=== PATIENT | female | born 1945 | race Caucasian/White ===

== ENCOUNTER → 2019-11-12 08:05 | Outpatient (CLI) | payer MEDICARE, OTHER, SELFPAY ==
[2019-11-12 09:40] LABS: Alanine Aminotransferase 18 IU/L (<35); Albumin 4.5 g/dL (3.5-5.0); Albumin Globulin Ratio 1.4 (1.0-2.8); Alkaline Phosphatase 74 U/L (38-126); Aspartate Aminotransferase 22 IU/L (14-36); BUN Creatinine Ratio 26.8 (6-22); Bilirubin Total 0.5 mg/dL (0.2-1.3); Blood Urea Nitrogen 19 mg/dL (7-17); Calcium 9.7 mg/dL (8.4-10.2); Carbon Dioxide 27 mmol/L (22-32); Chloride 103 mmol/L (98-107); Cholesterol 153 mg/dL (140-199); Estimated Glomerular Filt Rate > 60.0 mL/min (>60); Globulin 3.2 g/dL (1.7-4.1); Glucose 97 mg/dL (80-110); HDL Cholesterol 50 mg/dL (40-60); HEMOLYSIS < 15 (0-50); LDL Cholesterol Calculated 78 mg/dL (<100); Potassium 3.9 mmol/L (3.4-5.1); Sodium 138 mmol/L (137-145); Total Protein 7.7 g/dL (6.3-8.2); Triglycerides 127 mg/dL (35-150)
[2019-11-12 09:44] LABS: High Sensitivity CRP - Cardiac 0.3 mg/L (1.0-3.0)
[2019-11-12 10:30] LABS: Vitamin D 25 Hydroxy (D3) 50.5 ng/mL (30.0-100.0)
[2019-11-14 11:10] LABS: Cholesterol, Total 151 mg/dL (100-199); HDL-Cholesterol 58 mg/dL (>39); HDL-Particle (Total) 35.8 umol/L (>=30.5); LDL Particle 786 nmol/L (<1000); LDL Size 20.7 nm (>20.5); LDL-Cholsterol 69 mg/dL (0-99); LP-IR Score 52 (<=45); Small LDL- Particle 203 nmol/L (<=527); Triglycerides 122 mg/dL (0-149)
== END ==
PROVIDERS: PCP Student in an Organized Health Care Education/Training Program; Visit Provider Student in an Organized Health Care Education/Training Program
DX: E78.5 Hyperlipidemia, unspecified (principal); I10 Essential (primary) hypertension; I25.10 Atherosclerotic heart disease of native coronary artery without angina pectoris; I35.8 Other nonrheumatic aortic valve disorders; E55.9 Vitamin D deficiency, unspecified
CPT/HCPCS: 80053; 80061; 82306; 83704; 86140

== ENCOUNTER → 2020-08-04 11:23 | Outpatient (CLI) | payer MEDICARE, OTHER, SELFPAY ==
[2020-08-04 13:50] LABS: TSH w/ Reflex to FT4 1.52 uIU/mL (0.47-4.68)
== END ==
PROVIDERS: PCP Student in an Organized Health Care Education/Training Program; Referring Provider Student in an Organized Health Care Education/Training Program; Visit Provider Student in an Organized Health Care Education/Training Program
DX: E03.9 Hypothyroidism, unspecified (principal)
CPT/HCPCS: 36415; 84443

== ENCOUNTER → 2021-02-24 09:07 | Outpatient (CLI) | payer MEDICARE, OTHER, SELFPAY ==
--- NOTE | 2021-02-24 09:10 | DI.RAD.S_ITS ---
PROCEDURE: XR KNEE RT 3V INDICATIONS: Inferior patella pain and bruising post direct impact TECHNIQUE: 3 views of the knee were acquired. COMPARISON: [facility], CR, XR ANKLE LT MIN 3V, 02/24/2021, 9:06. FINDINGS: Bones: Linear lucency at the inferior patella. No distraction or dislocations. Prior lateral fixation at the proximal tibia. No hardware fracture. No Fernanda screw lucency or plate lift off. Small osteophytes. No suspicious bony lesions. Soft tissues: Trace joint effusion. No suspicious soft tissue calcifications. IMPRESSION: 1. Linear lucency at the inferior patella is suspicious for nondisplaced fracture. Trace joint effusion. -Consider further evaluation with CT or MRI of the knee. 2. Prior ORIF of the lateral proximal tibia. Dictated by: Steven Rivera M.D. on 02/24/2021 at 9:29 Approved by: Steven Rivera M.D. on 02/24/2021 at 9:33
--- NOTE | 2021-02-24 09:10 | DI.RAD.S_ITS ---
PROCEDURE: XR ANKLE LT MIN 3V INDICATIONS: lateral malleolar pain post twisting of ankle TECHNIQUE: 3 views of the ankle were acquired. COMPARISON: None. FINDINGS: Bones: Curvilinear lucency at the tip of the fibula. No dislocations. Ankle mortise is normally aligned. No suspicious bony lesions. Soft tissues: Swelling at the lateral malleolus. No tibiotalar joint effusion. Achilles tendon appears normal. IMPRESSION: Nondisplaced fracture at the distal fibula. Overlying swelling. Dictated by: Steven Rivera M.D. on 02/24/2021 at 9:33 Approved by: Steven Rivera M.D. on 02/24/2021 at 9:34
== END ==
PROVIDERS: PCP Student in an Organized Health Care Education/Training Program; Referring Provider Nurse Practitioner; Visit Provider Nurse Practitioner
DX: M25.461 Effusion, right knee (principal); S82.832A Other fracture of upper and lower end of left fibula, initial encounter for closed fracture; W19.XXXA Unspecified fall, initial encounter
CPT/HCPCS: 73562; 73610

== ENCOUNTER → 2021-12-08 07:47 | Outpatient (CLI) | payer MEDICARE, OTHER, SELFPAY ==
[2021-12-08 09:32] LABS: Alanine Aminotransferase 20 IU/L (<35); Albumin 4.3 g/dL (3.5-5.0); Albumin Globulin Ratio 1.5 (1.0-2.8); Alkaline Phosphatase 61 U/L (38-126); Aspartate Aminotransferase 25 IU/L (14-36); BUN Creatinine Ratio 24.7 (6-22); Bilirubin Total 0.5 mg/dL (0.2-1.3); Blood Urea Nitrogen 21 mg/dL (7-17); Calcium 9.7 mg/dL (8.4-10.2); Carbon Dioxide 30 mmol/L (22-32); Chloride 104 mmol/L (98-107); Cholesterol 131 mg/dL (140-199); Estimated Glomerular Filt Rate > 60 mL/min (>60); Globulin 2.8 g/dL (1.7-4.1); Glucose 98 mg/dL (80-110); HDL Cholesterol 59 mg/dL (40-60); HEMOLYSIS < 15 (0-50); LDL Cholesterol Calculated 51 mg/dL (<100); Potassium 3.9 mmol/L (3.4-5.1); Sodium 140 mmol/L (137-145); Total Protein 7.1 g/dL (6.3-8.2); Triglycerides 106 mg/dL (35-150)
[2021-12-08 09:37] LABS: High Sensitivity CRP - Cardiac 0.7 mg/L (1.0-3.0)
[2021-12-08 10:18] LABS: Thyroid Stimulating Hormone 6.55 uIU/mL (0.47-4.68)
[2021-12-10 10:28] LABS: Cholesterol, Total 137 mg/dL (100-199); HDL-Cholesterol 63 mg/dL (>39); LDL Particle 625 nmol/L (<1000); LDL-Cholsterol 53 mg/dL (0-99); LP-IR Score 45 (<=45); Small LDL- Particle 245 nmol/L (<=527); Triglycerides 116 mg/dL (0-149)
== END ==
PROVIDERS: PCP Student in an Organized Health Care Education/Training Program; Referring Provider Internal Medicine Cardiovascular Disease; Visit Provider Internal Medicine Cardiovascular Disease
DX: I10 Essential (primary) hypertension (principal); Z00.00 Encounter for general adult medical examination without abnormal findings; E03.9 Hypothyroidism, unspecified; I25.10 Atherosclerotic heart disease of native coronary artery without angina pectoris; I65.29 Occlusion and stenosis of unspecified carotid artery
CPT/HCPCS: 36415; 80053; 80061; 83704; 84443; 86140

== ENCOUNTER → 2022-01-26 09:21 | Outpatient (CLI) | payer MEDICARE, OTHER, SELFPAY ==
--- NOTE | 2022-01-26 | DI.US.S_ITS ---
PROCEDURE: US CAROTID DOPPLER BI INDICATIONS: Thoracic aortic ectasia TECHNIQUE: Color and pulse Doppler interrogation was performed of both carotid systems, with image documentation and velocity measurements. COMPARISON: None. FINDINGS: Stenosis calculations are based on SRU (Society of Radiologists in Ultrasound) criteria. The flow velocities and the arterial waveforms are normal within both carotid arterial systems. Atherosclerotic plaque is seen on both sides. The estimated degree of internal carotid artery stenosis is less than 50%. Antegrade flow is confirmed within both vertebral arteries. IMPRESSION: No hemodynamically significant stenosis is seen. Atherosclerotic plaque is noted bilaterally. Dictated by: León Glynn M.D. on 01/26/2022 at 10:21 Approved by: León Glynn M.D. on 01/26/2022 at 10:22
--- NOTE | 2022-01-26 09:24 | DI.ECHO.S_ITS ---
[facility]---------+ [facility] +---------+ : : [address] : : : : [id number] : : : : Phone: [phone]+ Echocardiogram Report + + :Name: KELLEN WHALEY Study Date: 01/26/2022 Height: 68 in : :[facility] [employer] [facility] ReadingLocation: Weight: 200 lb : : Gender: Female BSA: 2.0 m2 : :: 1945 Age: 76 yrs BP: 138/82 mmHg: :Reason For Study: Aortic valve stenosis : :Ordering Physician: BONITA, : :EM Performed By: Jacek Durand : :Referring: EM MESA : + + Interpretation Summary The ejection fraction is estimated to be 55-60%. There is no aortic valve stenosis. There is mild tricuspid regurgitation. The right ventricular systolic pressure is estimated to be at least 26 mmHg based on an estimated right atrial pressure of 3 mm Hg. Procedure: A two-dimensional transthoracic echocardiogram with color flow and Doppler was performed. The study quality was technically adequate. There is no prior echocardiogram noted for this patient. The patient was in normal sinus rhythm during the exam. Left Ventricle: The left ventricle is normal in size and wall thickness. Left ventricular systolic function is normal. The ejection fraction is estimated to be 55-60%. There are no focal wall motion abnormalities. Diastolic parameters suggest probable normal left ventricular diastolic function and normal filling pressures. Right Ventricle: The right ventricle is normal in size and function. Atria: Both atria are normal in size. The interatrial septum grossly appears intact with no obvious evidence for an atrial septal defect. Mitral Valve: The mitral valve is normal in structure and function. There is trace mitral regurgitation. Aortic Valve: The aortic valve is normal in structure and function. There is no aortic valve stenosis. There is trace aortic regurgitation. Tricuspid Valve: The tricuspid valve is normal in structure and function. There is mild tricuspid regurgitation. The right ventricular systolic pressure is estimated to be at least 26 mmHg based on an estimated right atrial pressure of 3 mm Hg. Pulmonic Valve: The pulmonic valve is normal in structure and function. There is a trace or physiologic amount of pulmonic regurgitation. Great Vessels: The aortic root is normal size. The ascending aorta is mildly enlarged. The IVC is of normal diameter and collapses greater than 50% with a sniff. This suggests a low right atrial pressure of 3 mm Hg. Pericardium/ Pleura There is no pericardial effusion. There is no pleural effusion. MMode/2D Measurements & Calculations LVIDd: 4.4 cm LVOT diam: 2.3 cm LVIDs: 3.1 cm Ao root diam: 3.0 cm FS: 29.7 % asc Aorta Diam: 4.0 cm IVSd: 1.0 cm LVPWd: 1.00 cm LV cordero. diameter/BSA (cm/m^2): 2.2 LV sys. diameter/BSA (cm/m^2): 1.5 LA A2 area: 14.4 cm2 RA long axis: 4.1 cm LA A4 area: 19.7 cm2 RA area: 11.1 cm2 LA length (vol): 5.4 cm RA vol: 25.7 ml LA vol: 44.8 ml RA : 12.6 ml/m2 LA vol index: 21.9 ml/m2 TAPSE: 2.0 cm Doppler Measurements & Calculations Ao V2 max: 150.7 cm/sec LVOT Max Tulio: 114.7 cm/sec Ao V2 mean: 112.5 cm/sec LV V1 max P.3 mmHg Ao max P.1 mmHg LV V1 VTI: 21.9 cm Ao mean P.6 mmHg ANGELA(I,D): 2.9 cm2 Ao V2 VTI: 31.3 cm ANGELA(V,D): 3.2 cm2 sev ratio: 0.70 ANGELA indexed to BSA (cm^2/m^2): 1.4 MV E max tulio: 85.7 cm/sec TR max tulio: 238.0 cm/sec MV A max tulio: 97.7 cm/sec TR max P.7 mmHg MV E/A: 0.88 Med Peak E' Tulio: 9.1 cm/sec E/E' med: 9.4 Lat Peak E' Tulio: 11.1 cm/sec E/E' lat: 7.7 E/e' average: 8.6 MV dec time: 0.31 sec SV(LVOT): 91.1 ml Reading Physician:02:15 PM
== END ==
PROVIDERS: PCP Student in an Organized Health Care Education/Training Program; Referring Provider Internal Medicine Cardiovascular Disease; Visit Provider Internal Medicine Cardiovascular Disease
DX: I65.23 Occlusion and stenosis of bilateral carotid arteries (principal); I08.2 Rheumatic disorders of both aortic and tricuspid valves; I77.89 Other specified disorders of arteries and arterioles; I77.810 Thoracic aortic ectasia; I10 Essential (primary) hypertension; E78.5 Hyperlipidemia, unspecified
CPT/HCPCS: 93306; 93880

== ENCOUNTER → 2022-06-05 11:50 | Outpatient (CLI) | payer MEDICARE, OTHER, SELFPAY ==
--- NOTE | 2022-06-05 11:54 | DI.RAD.S_ITS ---
PROCEDURE: XR ANKLE LT MIN 3V INDICATIONS: left ankle pain TECHNIQUE: 3 views of the ankle were acquired. COMPARISON: [facility], CR, XR ANKLE LT MIN 3V, 02/24/2021, 9:06. FINDINGS: Bones: No fractures or dislocations. Ankle mortise is normally aligned. No suspicious bony lesions. Old healed distal fibular fracture Soft tissues: No tibiotalar joint effusion. Achilles tendon appears normal. IMPRESSION: Old healed distal fibular fracture. No acute fracture or foreign body. Approved by: Ravi Andrade M.D. on 06/05/2022 at 12:43
--- NOTE | 2022-06-05 11:54 | DI.RAD.S_ITS ---
PROCEDURE: XR FOOT LT MIN 3V INDICATIONS: left ankle pain TECHNIQUE: 3 views of the foot were acquired. COMPARISON: None. FINDINGS: Bones: No fractures or dislocations. No suspicious bony lesions. Soft tissues: No tibiotalar joint effusion. Achilles tendon appears normal. IMPRESSION: Unremarkable left foot radiographs Approved by: Ravi Andrade M.D. on 06/05/2022 at 12:47
== END ==
PROVIDERS: PCP Student in an Organized Health Care Education/Training Program; Referring Provider Physician Assistant Medical; Visit Provider Physician Assistant Medical
DX: M79.672 Pain in left foot (principal); M25.572 Pain in left ankle and joints of left foot
CPT/HCPCS: 73610; 73630

== ENCOUNTER → 2022-11-22 07:12 | Outpatient (CLI) | payer MEDICARE, OTHER, SELFPAY ==
[2022-11-22 09:57] LABS: Alanine Aminotransferase 20 IU/L (<35); Albumin 4.2 g/dL (3.5-5.0); Albumin Globulin Ratio 1.6 (1.0-2.8); Alkaline Phosphatase 66 U/L (38-126); Aspartate Aminotransferase 21 IU/L (14-36); BUN Creatinine Ratio 22.2 (6-22); Bilirubin Total 0.4 mg/dL (0.2-1.3); Blood Urea Nitrogen 18 mg/dL (7-17); C-Reactive Protein Quant < 0.5 mg/dL (<1.0); Calcium 9.8 mg/dL (8.4-10.2); Carbon Dioxide 28 mmol/L (22-32); Chloride 102 mmol/L (98-107); Cholesterol 113 mg/dL (140-199); Estimated Glomerular Filt Rate > 60 mL/min (>60); Globulin 2.6 g/dL (1.7-4.1); Glucose 95 mg/dL (80-110); HDL Cholesterol 56 mg/dL (40-60); HEMOLYSIS < 15 (0-50); LDL Cholesterol Calculated 37 mg/dL (<100); Sodium 138 mmol/L (137-145); Total Protein 6.8 g/dL (6.3-8.2); Triglycerides 100 mg/dL (35-150)
[2022-11-23 09:48] LABS: Free T3, Triiodothyronine Free 3.72 pg/mL (2.77-5.27); Free T4, Direct Thyroxine 1.22 ng/dL (0.78-2.19)
[2022-11-23 10:01] LABS: Thyroid Stimulating Hormone 1.95 uIU/mL (0.47-4.68)
[2022-11-24 14:48] LABS: Cholesterol, Total 120 mg/dL (100-199); HDL-Cholesterol 61 mg/dL (>39); HDL-Particle (Total) 38.7 umol/L (>=30.5); LDL Particle 451 nmol/L (<1000); LDL Size 20.4 nm (>20.5); LDL-Cholsterol 41 mg/dL (0-99); LP-IR Score 40 (<=45); Small LDL- Particle 114 nmol/L (<=527); Triglycerides 99 mg/dL (0-149)
== END ==
PROVIDERS: PCP Family Medicine; Referring Provider Internal Medicine Cardiovascular Disease; Visit Provider Internal Medicine Cardiovascular Disease
DX: I10 Essential (primary) hypertension (principal); E78.5 Hyperlipidemia, unspecified; I25.10 Atherosclerotic heart disease of native coronary artery without angina pectoris; I65.29 Occlusion and stenosis of unspecified carotid artery; E03.9 Hypothyroidism, unspecified
CPT/HCPCS: 36415; 80053; 80061; 83704; 84439; 84443; 84481; 86140

== ENCOUNTER → 2023-04-29 11:33 | Outpatient (CLI) | payer MEDICARE, OTHER, SELFPAY ==
[2023-04-29 17:59] LABS: Vitamin D 25 Hydroxy (D3) 72.6 ng/mL (30.0-100.0)
[2023-05-01 08:54] LABS: Calcium 9.8 mg/dL (8.7-10.3); Parathyroid Hormone, Intact 61 pg/mL (15-65)
== END ==
PROVIDERS: PCP Family Medicine; Referring Provider Family Medicine; Visit Provider Family Medicine
DX: E83.52 Hypercalcemia (principal)
CPT/HCPCS: 36415; 82306; 82310; 83970

== ENCOUNTER → 2024-03-10 09:16 | Outpatient (CLI) | payer MEDICARE, OTHER, SELFPAY ==
[2024-03-10 10:46] LABS: Alanine Aminotransferase 20 IU/L (<35); Albumin 4.1 g/dL (3.5-5.0); Albumin Globulin Ratio 1.7 (1.0-2.8); Alkaline Phosphatase 63 U/L (38-126); Aspartate Aminotransferase 22 IU/L (14-36); BUN Creatinine Ratio 23.8 (6-22); Bilirubin Total 0.6 mg/dL (0.2-1.3); Blood Urea Nitrogen 20 mg/dL (7-17); Calcium 10.1 mg/dL (8.4-10.2); Carbon Dioxide 25 mmol/L (22-32); Chloride 106 mmol/L (98-107); Cholesterol 113 mg/dL (140-199); Estimated Glomerular Filt Rate > 60 mL/min (>60); Globulin 2.4 g/dL (1.7-4.1); Glucose 103 mg/dL (80-110); HDL Cholesterol 60 mg/dL (40-60); HEMOLYSIS < 15 (0-50); LDL Cholesterol Calculated 37 mg/dL (<100); Potassium 3.9 mmol/L (3.4-5.1); Sodium 137 mmol/L (137-145); Total Protein 6.5 g/dL (6.3-8.2); Triglycerides 82 mg/dL (35-150)
[2024-03-10 10:53] LABS: High Sensitivity CRP - Cardiac < 0.3 mg/L (1.0-3.0)
[2024-03-10 11:15] LABS: Thyroid Stimulating Hormone 0.732 uIU/mL (0.47-4.68)
[2024-03-10 12:07] LABS: Hemoglobin A1C% w Est Avg Glu 5.4 % (4.0-6.0)
== END ==
LOC: LAB 09:17
PROVIDERS: PCP Family Medicine; Referring Provider Internal Medicine Cardiovascular Disease; Visit Provider Internal Medicine Cardiovascular Disease
DX: E03.9 Hypothyroidism, unspecified (principal); E78.5 Hyperlipidemia, unspecified; I25.10 Atherosclerotic heart disease of native coronary artery without angina pectoris
CPT/HCPCS: 36415; 80053; 80061; 83036; 83704; 84443; 86140

== ENCOUNTER → 2024-04-07 09:20 | Outpatient (CLI) | payer MEDICARE, OTHER, SELFPAY ==
--- NOTE | 2024-04-07 09:23 | DI.US.S_ITS ---
PROCEDURE: US CAROTID DOPPLER BI INDICATIONS: HYPERTENSION TECHNIQUE: Color and pulse Doppler interrogation was performed of both carotid systems, with image documentation and velocity measurements. COMPARISON: [facility], , CAROTID DOPPLER BI, 01/26/2022, 10:16. FINDINGS: Stenosis calculations are based on SRU (Society of Radiologists in Ultrasound) criteria. The flow velocities and the arterial waveforms are normal within both carotid arterial systems. Atherosclerotic plaque is seen on both sides. The estimated degree of internal carotid artery stenosis is less than 50%. Antegrade flow is confirmed within both vertebral arteries. IMPRESSION: No hemodynamically significant stenosis is seen. Atherosclerotic plaque is noted bilaterally. No significant change from the prior. Dictated by: León Glynn M.D. on 04/07/2024 at 17:30 Approved by: León Glynn M.D. on 04/07/2024 at 17:31
== END ==
PROVIDERS: PCP Family Medicine; Referring Provider Internal Medicine Cardiovascular Disease; Visit Provider Internal Medicine Cardiovascular Disease
DX: I65.23 Occlusion and stenosis of bilateral carotid arteries (principal)
CPT/HCPCS: 93880

== ENCOUNTER → 2025-04-12 12:11 | Outpatient (CLI) | payer MEDICARE, OTHER, SELFPAY ==
--- NOTE | 2025-04-12 12:15 | DI.RAD.S_ITS ---
PROCEDURE: XR HAND LT MIN 3V
== END ==
PROVIDERS: PCP Family Medicine; Referring Provider Family Medicine; Visit Provider Family Medicine
DX: S62.347A Nondisplaced fracture of base of fifth metacarpal bone, left hand, initial encounter for closed fracture (principal); M79.642 Pain in left hand
CPT/HCPCS: 73130